=== PATIENT | female | born 1985 | race Caucasian/White ===

== ENCOUNTER 2016-08-23 12:52 | Emergency (ER) | payer MEDICAID ==
[~2016-08-23 12:52] MED LIST: BENADRYL ALLERG25 M1 PO; CLE150 PO; DEPAKOTE ER250 M1 PO; LAC PO; LAC30L PO; LEVAQUIN750 MG PO; NEOMYCIN SULFA500 MG PO; NORCO1 TA2 PO; PROVENTIL0.09 MG/A1 IH; ROXICODONE5 MG PO; TOPAMAX25 M1 PO; TOPAMAX25 MG PO
[2016-08-23 15:21] VITALS: BP 105/80
== END 2016-08-23 15:21 | disposition home or self-care (01) ==
LOC: ED 12:52
DX: R56.9 Unspecified convulsions (principal)
CPT/HCPCS: 80201

== ENCOUNTER 2016-09-21 09:48 | Emergency (ER) | payer MEDICAID ==
[~2016-09-21] VITALS: Ht 162.6 cm; Wt 53.5 kg
[2016-09-21 10:49] LABS: BASOPHIL % 0.4 % (0-2); PLATELET COUNT 234 x10^3mcL (130-400)
[2016-09-21 11:16] LABS: CALCIUM 9.1 mg/dL (8.5-10.1); CHLORIDE SERUM 105 mmol/L (98-107); CREATININE SERUM 0.7 mg/dL (0.6-1.0); GFR1 > 60 mL/min; GLUCOSE SERUM 103 mg/dL (74-106); POTASSIUM SERUM 3.5 mmol/L (3.5-5.1); SODIUM SERUM 141 mmol/L (136-145)
[2016-09-21 11:20] LABS: ALBUMIN 3.3 g/dL (3.4-5.0); ALKALINE PHOSPHATASE 120 U/L (46-116); ALT/SGPT 77 U/L (14-59); AST/SGOT 70 U/L (15-37); BILIRUBIN TOTAL 0.5 mg/dL (0.20-1.00); MAGNESIUM 2.1 mg/dL (1.8-2.4); TOTAL PROTEIN, SERUM 8.4 g/dL (6.4-8.2)
[2016-09-21 11:21] LABS: RED CELL DISTRIBUTION WIDTH 15.5 % (11.5-14.5)
[2016-09-21 12:15] LABS: AMPHETAMINE QUAL UR POSITIVE (NEG <=1000)
[2016-09-21 15:51] VITALS: BP 115/73
== END 2016-09-21 15:51 | disposition home or self-care (01) ==
LOC: ED 09:48
PROVIDERS: Emergency Medicine
DX: G40.909 Epilepsy, unspecified, not intractable, without status epilepticus (principal); F19.10 Other psychoactive substance abuse, uncomplicated; Z88.0 Allergy status to penicillin; Z88.1 Allergy status to other antibiotic agents; Z88.8 Allergy status to other drugs, medicaments and biological substances; Z88.6 Allergy status to analgesic agent; Z91.040 Latex allergy status
CPT/HCPCS: J3490; J7030

== ENCOUNTER 2017-11-19 00:20 | Emergency (ER) | payer MEDICAID ==
[~2017-11-19] VITALS: Ht 162.6 cm; Wt 61.2 kg
[2017-11-19 00:22] VITALS: BP 124/37; Ht 162.6 cm; Wt 61.2 kg
== END 2017-11-19 01:18 | disposition left against medical advice (07) ==
LOC: ED 00:20
DX: J98.01 Acute bronchospasm (principal); J45.909 Unspecified asthma, uncomplicated; F90.9 Attention-deficit hyperactivity disorder, unspecified type; Z88.0 Allergy status to penicillin; Z88.1 Allergy status to other antibiotic agents; Z88.6 Allergy status to analgesic agent; Z91.040 Latex allergy status; W57.XXXA Bitten or stung by nonvenomous insect and other nonvenomous arthropods, initial encounter; Y93.89 Activity, other specified; Y92.89 Other specified places as the place of occurrence of the external cause; Y99.8 Other external cause status
CPT/HCPCS: J0171; J2930; J7613; J7644

== ENCOUNTER 2018-01-10 10:25 | Emergency (ER) | payer MEDICAID ==
[~2018-01-10] VITALS: Ht 162.6 cm; Wt 61.2 kg
[2018-01-10 10:39] VITALS: Ht 162.6 cm; Wt 61.2 kg
[2018-01-10 13:11] VITALS: BP 120/64
== END 2018-01-10 13:11 | disposition home or self-care (01) ==
LOC: ED 10:25
DX: B95.62 Methicillin resistant Staphylococcus aureus infection as the cause of diseases classified elsewhere (principal); L03.116 Cellulitis of left lower limb; J45.909 Unspecified asthma, uncomplicated; I10 Essential (primary) hypertension; F17.200 Nicotine dependence, unspecified, uncomplicated
CPT/HCPCS: J3490